=== PATIENT | male | born 1960 | race Caucasian/White ===

== ENCOUNTER → 2016-08-24 | Outpatient (CLI) | payer BC ==
[2016-08-24 17:46] LABS: Appearance,Urine Clear (Clear); Bilirubin,Urine Negative (Negative); Glucose,Urine (UA) Negative (Negative); Ketones,Urine Negative (Negative); Leukocyte Esterase,Urine Negative (Negative); Nitrite,Urine Negative (Negative); PH, Urine 5.5 (5.0-8.0); Protein,Urine Negative (Negative); UA Billing (MACRO vs. MICRO) CHEM; Urobilinogen,Urine <2.0 mg/dL (<2.0)
[2016-08-24 17:58] LABS: CH 31.6; CHCM 34.4; HCT 40.9 % (39.0-53.0); HDW 2.74; HGB 13.5 gm/dL (13.0-17.5); MCH 30.5 pg (25.0-35.0); MCV 92.4 fL (80.0-100.0); Mean Platelet Volume 7.9; RBC 4.43 m/uL (4.30-5.90); RDW 12.9 % (11.5-15.5); WBC 6.2 k/uL (3.8-10.6)
[2016-08-24 18:07] LABS: ALT 45 U/L (21-72); AST 31 U/L (17-59); Alkaline Phosphatase 98 U/L (38-126); Anion Gap 14 mmol/L; Blood Urea Nitrogen 25 mg/dL (9-20); Calcium 10.1 mg/dL (8.4-10.2); Carbon Dioxide 26 mmol/L (22-30); Chloride 102 mmol/L (98-107); Glucose 149 mg/dL (74-99); Non-African American GFR(MDRD) >60 (>60 ml/min/1.73 sqM); Potassium 4.4 mmol/L (3.5-5.1); Sodium 142 mmol/L (137-145); Total Bilirubin 0.7 mg/dL (0.2-1.3); Total Protein 8.3 g/dL (6.3-8.2)
[2016-08-24 18:14] LABS: Partial Thromboplastin Time 21.9 sec (22.0-30.0); Prothrombin Time 10.5 sec (9.0-12.0)
== END | disposition home or self-care (01) ==
LOC: LABPAT 17:05
PROVIDERS: ATTEND Orthopaedic Surgery Sports Medicine
DX: Z01.810 Encounter for preprocedural cardiovascular examination (principal); Z01.812 Encounter for preprocedural laboratory examination
CPT/HCPCS: 80053; 81003; 85027; 85610; 85730; 87070

== ENCOUNTER 2016-09-07 11:01 | Inpatient (IN) | payer BC, OTHER ==
[~2016-09-07 11:01] MED LIST: ACETAMINOPHEN TAB 500 MG TAB PO ONE; DEXAMETHASONE SOD PHOSPHATE 10 MG/ML 1 ML VIAL IV ONE; HYDROmorphone 1 MG/ML 1 ML SYRINGE IVP PRN; LACTATED RINGERS 1,000 ML IV SCH; MELOXICAM 7.5 MG TAB PO ONE; MIDAZOLAM 2 MG/2 ML VIAL IV PRN; ONDANSETRON 4 MG/2 ML VIAL IVP ONE; Pre Op ABX Message 1 EACH MISC MISCELLANE ONE; TRANEXAMIC ACID 1,000 MG in SODIUM CHLORIDE 0.9% 100 ML IVPB ONE; VANCOMYCIN 2,000 MG in SODIUM CHLORIDE 0.9% 500 ML IVPB STA
[2016-09-07] MEDS ORDERED: LIDOCAINE 1% 20 ML VIAL (10MG/ML) FOR IV START INTRADERMA ONE (11:45)
[2016-09-07 12:02] LABS: Glucose,Whole Blood 134 mg/dL (75-99)
[2016-09-07] MEDS ORDERED: [UNRECOGNIZED DRUG - OTHER] IRRIGATION ONE (13:00)
[2016-09-07] MEDS ORDERED: VANCOMYCIN IRRIGATION ONE (13:00)
[2016-09-07] MEDS ORDERED: POLYMYXIN B IRRIGATION ONE (13:00)
[2016-09-07] MEDS ORDERED: PROPOFOL 10 MG/ML 20 ML VIAL IV ONE (13:02)
[2016-09-07] MEDS ORDERED: GLYCOPYRROLATE 0.2 MG/ML 2 ML VIAL ONE (13:02)
[2016-09-07] MEDS ORDERED: KETAMINE 10 MG/ML 20 ML VIAL ONE (13:02)
[2016-09-07] MEDS ORDERED: fentaNYL (PF) 50 MCG/ML 2 ML AMP ONE (13:02)
[2016-09-07] MEDS ORDERED: MIDAZOLAM 2 MG/2 ML VIAL ONE (13:02)
[2016-09-07] MEDS ORDERED: SODIUM CHLORIDE 0.9% 100 ML BAG ONE (13:02)
[2016-09-07] MEDS ORDERED: MORPHINE SULFATE (PF) 0.3 MG/0.3 ML SYR ONE (13:02)
[2016-09-07] MEDS ORDERED: TRANEXAMIC ACID 1,000 MG/10 ML VIAL ONE (13:02)
[2016-09-07] MEDS ORDERED: traMADol 50 MG TAB PO PRN (13:27)
[2016-09-07] MEDS ORDERED: TEMAZEPAM 15 MG CAP PO PRN (13:27)
[2016-09-07] MEDS ORDERED: HYDROcodone/APAP 7.5-325MG 1 EACH TAB PO PRN (13:27)
[2016-09-07] MEDS ORDERED: HYDROmorphone 1 MG/ML 1 ML SYRINGE IVP PRN ×3 (13:27)
[2016-09-07] MEDS ORDERED: ONDANSETRON 4 MG/2 ML VIAL IVP PRN (13:27)
[2016-09-07] MEDS ORDERED: ACETAMINOPHEN TAB 325 MG TAB PO PRN (13:27)
[2016-09-07] MEDS ORDERED: NALOXONE 0.4 MG/ML 1 ML VIAL IV PRN ×2 (13:27→15:24)
[2016-09-07] MEDS ORDERED: DIAZEPAM 5 MG TAB PO PRN (13:27)
[2016-09-07] MEDS ORDERED: NA PHOS,M-B/NA PHOS,DI-BA 133 ML ENEMA RECTAL PRN (13:27)
[2016-09-07] MEDS ORDERED: BISACODYL 10 MG SUPP RECTAL PRN (13:27)
[2016-09-07] MEDS ORDERED: MAGNESIUM HYDROXIDE 2,400 MG/10 ML CUP PO PRN (13:27)
[2016-09-07] MEDS: ROPIVACAINE 246.25 MG, EPINEPHrine 0.5 MG, KETOROLAC 30 MG, cloNIDine HCL/PF 80 MCG, WA... MISCELLANE ONE ×10 (13:40→14:38)
[2016-09-07] MEDS ORDERED: LACTATED RINGERS 1,000 ML IV ONE (14:45)
[2016-09-07] MEDS ORDERED: NALBUPHINE 10 MG/ML AMPUL IV PRN (15:24)
[2016-09-07] MEDS ORDERED: METOCLOPRAMIDE 5 MG/ML 2 ML VIAL IVP PRN (15:24)
[2016-09-07] MEDS ORDERED: MORPHINE SULFATE 4 MG/ML SYRINGE IVP PRN (15:24)
[2016-09-07 15:43] LABS: Glucose,Whole Blood 182 mg/dL (75-99)
--- NOTE | 2016-09-07 15:52 | XR ---
EXAMINATION TYPE: XR knee limited LT DATE OF EXAM: 09/07/2016 3:37 PM COMPARISON: NONE HISTORY: 55 year-old male evaluate for postoperative abnormality and alignment TECHNIQUE: Portable AP and crosstable lateral views FINDINGS: Images show placement of left total knee arthroplasty. Both distal femoral and proximal tibial compon ents of the osteosynthesis are well-seated without periprosthetic fracture. Alignment is grossly jass omic. Anterior soft tissue swelling with soft tissue gas as well as intra-articular air and joint eff usion compatible with recent operation. IMPRESSION: Uncomplicated postoperative appearance left total knee arthroplasty.
[2016-09-07] MEDS: LACTATED RINGERS 1,000 ML IV SCH ×2 (16:52→21:53)
[2016-09-07 17:06] LABS: Glucose,Whole Blood 175 mg/dL (75-99)
[2016-09-07] MEDS ORDERED: metFORMIN 500 MG TAB PO SCH (17:30)
[2016-09-07 19:06] VITALS: BMI 7030.0
[2016-09-07] MEDS: INSULIN LISPRO (humaLOG) 300 UNIT/3 ML VIAL SQ SCH ×2 (19:21→21:51)
[2016-09-07] MEDS: SENNOSIDES-DOCUSATE SODIUM 1 EACH TAB PO SCH (20:56)
[2016-09-07] MEDS ORDERED: MAG PO SCH (21:00)
[2016-09-07] MEDS ORDERED: POT PO SCH (21:00)
[2016-09-07] MEDS ORDERED: BROMELAIN PO SCH (21:00)
[2016-09-07 21:17] LABS: Glucose,Whole Blood 167 mg/dL (75-99)
--- NOTE | 2016-09-07 22:46 | OP ---
DATE OF SERVICE: 09/07/2016 SURGEON: HO RUTH MD IT ACCOUNT MANAGER: Zaid HILARIO PREOPERATIVE DIAGNOSIS: Left knee osteoarthrosis. POSTOPERATIVE DIAGNOSIS: Left knee osteoarthrosis. OPERATION: Left total knee arthroplasty. ANESTHESIA: Spinal with sedation. ESTIMATED BLOOD LOSS: 100 mL TOURNIQUET TIME: 56 minutes @ 250 mmHg. SPECIMENS REMOVED: COMPLICATIONS: None apparent. DRAINS: None. DISPOSITION: Post-Anesthesia Care Unit. OPERATIVE FINDINGS: INDICATIONS: Saulo is a 55-year-old male with long-standing history of left knee pain. History and physical examination were consistent with advanced left knee osteoarthrosis. He has been through significant non-operative management up to this point. Further treatment options were discussed and he decided to go forward with left total knee arthroplasty. The risks of the procedure were discussed with him in detail. These risks include but are not limited to risk of infection, nerve damage, bleeding, pain, and a small risk of deep vein thrombosis which could lead to fatal pulmonary embolism. There is also a risk of loosening of the implant, which could require revision operation. The patient understands these risks. All of his questions were answered to his satisfaction. Appropriate informed consent was obtained. DESCRIPTION OF THE PROCEDURE: The patient was identified in the preoperative holding area. Surgical site was marked by both the patient and myself. He was given 1 gram of vancomycin IV for prophylactic purposes. He was then transferred to the operative suite. He was placed supine on the operating room table. A spinal anesthetic was then administered and dosed per the anesthesia department without apparent complication. Examination under anesthesia was then performed. The patient was 5 to 10 degrees shy of full extension. He had 90 degrees of flexion, and the medial collateral ligament, lateral collateral ligament and posterior cruciate ligaments were stable. The tourniquet was then placed high on the left upper thigh, well padded in preparation for surgery. The patient's left lower extremity was then prepped and draped in the usual sterile fashion. Standard surgical pause was then undertaken to ensure that we were operating on the correct site and that appropriate preoperative antibiotics had been given. All staff in the room were in agreement and we proceeded. The outlines of the patella were marked with a surgical pen. A planned 12 cm vertical incision centered over the patella was marked with a surgical pen. The leg was then exsanguinated with an Esmarch dressing. The knee was then flexed and the tourniquet was inflated to 250 mmHg. The total tourniquet time for the procedure was 56 minutes. Incision was then made with a 10 blade scalpel. Dissection was carried down sharply to the overlying fascia. Great care was taken to minimize the skin flaps. The knee was then exposed using a standard medial parapatellar approach. A small cuff of quadriceps tendon was left for suturing. He was in a bit of varus preoperatively. A standard medial release was then made. Superficial medial collateral ligament was dissected off the bone around to the posterior aspect of the proximal tibia. The medial meniscus was then excised as well. The lateral meniscus was also released anteriorly. The leg was then externally rotated. The patella was then everted and the knee was flexed. Retractors were then placed to protect the collateral ligaments. I then proceeded to remove the infrapatellar fat pad. This was excised sharply tangentially with the fibers of the patellar tendon. I then proceeded to remove the peripheral osteophytes. This was done with a rongeur. I then proceeded with distal femoral resection. He did have a flexion contracture. I planned to take an extra 2 mm of bone. A planned 11 mm resection was then done. The femoral canal was then entered in the midline of the femur approximately 10 mm anterior to the origin of the posterior cruciate ligament. The vincenzo was then advanced down the center of the femur and placed intramedullary. Based on preoperative radiographs, the angle between the anatomic and mechanical axis of the femur was approximately 4 to 5 degrees. The valgus angle of the distal femoral cutting guide was set at 4 degrees for the left knee. The distal femoral cutting guide was then advanced over the intramedullary vincenzo. This was seated firmly against the femur. I then, as mentioned, planned to take 11 mm off the distal femur. The cutting block was then secured to the femur with pins. The jig was then removed and the distal femoral cut was made through the slot on the block. The pins were then removed and the distal femoral cutting block was removed. The accuracy of the distal femoral cuts was checked with 2 flat bars. I then proceeded with femoral sizing. The posterior referencing sizing guide was held firmly against the resected distal surface of the femur. The posterior condyles were resting on the posterior plane of the guide. The sizing stylus was then placed onto the anterior femur. The size was measured as size 11. I then assessed for femoral rotation. The plan was for 3 degrees of external rotation. Three degrees of external rotation was placed onto the jig. These holes were then marked. I then confirmed the rotation by 3 separate methods. This was done using the epicondylar axis as well as Whitesides line and posterior referencing. It was deemed that the external rotation was proper. I then went forward with placing the femoral cutting block. This was placed over the previously placed pinholes. The dominik wing was then placed onto the anterior slots to ensure that we would not notch the anterior femur with the anterior femoral cut. I then proceeded with the anterior femoral cut. This was flush with the anterior cortex of the femur. Posterior cuts were then made followed by the anterior chamfer cut and then the posterior chamfer cut. Cutting block was then removed. Throughout the resection the collateral ligaments were protected with retractors. I then placed a trial size 11 femur. It fit very nicely medial to lateral and fit flush with the distal end of the femur. The drill holes were then made. I then proceeded with the tibial cut. I planned for a cruciate-retaining knee. The guide was placed and set for varus, valgus and for slope. The height was set for approximate 2 mm resection from the medial tibial plateau, which was the lower side. I was happy with the alignment and the amount of resection. The cutting block was then pinned ( ) the proximal tibia. The alignment vincenzo was removed and the proximal tibia was resected with reciprocating saw. Again this was done with retractors protecting the collateral ligaments as well as the posterior cruciate ligament. I then proceeded to evaluate the flexion and extension gaps. A 10 mm block was placed. The flexion and extension gaps were equal. I then proceeded with resection of the very extensive posterior osteophytes. This was done using a curved osteotome. This resected the posterior osteophytes in the posterior capsule. Stripping was also done at this time off the posterior aspect of the femur. The osteophytes were removed. I then proceeded with resection of the patella. The thickness of the patella was measured using the caliper. The thickness was 24 mm. The thickness of the anticipated patellar dome was taken into account. Resection was then performed and confirmed to be equal in 4 quadrants using a caliper. Approximately 14 mm of bone remained after the resection. A 35 x 9 mm standard patellar trial was then placed. The holes were then drilled and the trial was then placed. I then proceeded with sizing the tibial plate. A size G tibial plate fit very nicely. I then placed a trial femur, tibial tray and the patellar button. A 10 mm trial tibial insert was also placed. The components fit very nicely. He had full extension and flexion. The extension and flexion gaps were equal and stable to both varus and valgus stress. The patella tracked appropriately. The tibial tray rotation was marked with a Bovie. This was externally rotated properly. I then proceeded with tibial preparation. I first drilled the femoral holes and removed the femoral component. The tibial tray was then set for proper external rotation as well as mediolateral placement onto the tibia. It was then pinned into place. I then proceeded with punching the keel. I then decided to proceed cementing of all of our components. The knee was thoroughly irrigated with sterile saline solution via pulse lavage. The lateral genicular artery was identified and cauterized. All blood was removed from around the bone of the tibia, femur and patella with pulse lavage. I then proceeded with cementing. Two packs of antibiotic bone cement were prepared on the back table by the manager surgical. I then proceeded with cementing of the tibia first. The cement was then impacted into the keel as well as deeply seated into the bone. A second coat of cement was then placed. The tibia was then impacted into place. Excess cement was removed with Rachael's and jokers. I then proceeded with cementing of the femoral component. The femoral component was also cemented using standard technique. Excess cement was removed. A 10 mm trial insert was then placed into the knee. It was brought into full extension with a constant axial load placed until the cement had hardened. The patellar component was then cemented. This was held firmly with a compressive device until the cement had dried. When the cement had dried, the knee was taken out of extension. All excess cement was removed from around the prosthesis. I then trialed the knee with a 10 mm insert. Flexion and extension gaps were appropriate. The knee was stable. It came into full extension. I decided to go forward with a 10 mm cross-linked cruciate-retaining tibial insert. Polyethylene was then placed onto the tibial tray and locked. The knee was reduced. The knee was again further irrigated with sterile saline solution with antibiotic added. The tourniquet was then deflated. The total tourniquet time for the procedure was 56 minutes at 250 mmHg. Final components were Esme Persona size 11 cruciate-retaining femoral component, a size G tibial tray, a 10 mm cruciate-retaining polyethylene insert, and a 35 x 9 mm patella. I then proceeded with closure. Again the knee was thoroughly irrigated. The quadriceps tendon and the medial retinaculum were reapproximated with #2 Ethibond suture. The extensor mechanism was then closed with running #2 Quill suture. Subcutaneous tissues were then closed with 2-0 Vicryl interrupted suture. Skin was closed with a running 3-0 Quill suture. Dermabond was applied to the incision. Sterile compressive dressings were then applied. All sponge and needle counts were deemed correct prior to closure. The patient tolerated the procedure without apparent complications. He was transferred to the recovery room in stable condition.
[2016-09-08] MEDS: ASPIRIN 325 MG TAB PO SCH ×3 (00:55→20:17)
[2016-09-08] MEDS ORDERED: VANCOMYCIN 2,500 MG in SODIUM CHLORIDE 0.9% 500 ML IVPB ONE (01:00)
[2016-09-08 07:05] LABS: Glucose,Whole Blood 134 mg/dL (75-99)
[2016-09-08 07:27] LABS: Basophils % (A) 0 %; CHCM 35.6; Eosinophils % (A) 0 %; HCT 36.2 % (39.0-53.0); HGB 12.4 gm/dL (13.0-17.5); Luc # (Auto) 0.09; Luc % (Auto) 1; Lymphocytes % (A) 13 %; MCH 30.8 pg (25.0-35.0); MCHC 34.1 g/dL (31.0-37.0); MCV 90.4 fL (80.0-100.0); Mean Platelet Volume 7.9; Monocytes # (A) 0.4 k/uL (0-1.0); Monocytes % (A) 5 %; Neutrophils % (A) 80 %; RBC 4.01 m/uL (4.30-5.90); RDW 12.7 % (11.5-15.5); WBC 7.4 k/uL (3.8-10.6); WBC (Perox) 7.92
[2016-09-08] MEDS: INSULIN LISPRO (humaLOG) 300 UNIT/3 ML VIAL SQ SCH ×4 (07:29→20:18)
[2016-09-08] MEDS: LOSARTAN 50 MG TAB PO SCH (07:32)
[2016-09-08] MEDS: amLODIPine 10 MG TAB PO SCH (07:32)
[2016-09-08] MEDS: MULTIVITAMINS, THERA 1 EACH TAB PO SCH (07:33)
[2016-09-08] MEDS: CYANOCOBALAMIN 500 MCG TAB PO SCH (07:33)
[2016-09-08] MEDS: ASCORBIC ACID 500 MG TAB PO SCH (07:33)
[2016-09-08] MEDS: FERROUS SULFATE 325 MG TAB PO SCH (07:33)
[2016-09-08] MEDS: metFORMIN 500 MG TAB PO SCH ×2 (07:34→17:09)
[2016-09-08] MEDS: HYDROCHLOROTHIAZIDE 25 MG TAB PO SCH (07:34)
[2016-09-08 08:39] LABS: Hemoglobin A1C 6.8 % (4.2-6.1)
[2016-09-08] MEDS ORDERED: amLODIPine 10 MG TAB PO SCH (09:00)
[2016-09-08] MEDS ORDERED: HYDROCHLOROTHIAZIDE 25 MG TAB PO SCH (09:00)
[2016-09-08] MEDS ORDERED: LOSARTAN 50 MG TAB PO SCH (09:00)
--- NOTE | 2016-09-08 10:58 | P.PN ---
Progress Note - Text Date:09/08 Time:731 Patient is status post tkr. Patient seen this morning with VAS score of 0 . c/o of mild pruritus, c/o nausea/vomiting, comfortable and doing better todaybayron Hernández
[2016-09-08 11:44] LABS: Glucose,Whole Blood 152 mg/dL (75-99)
[2016-09-08] MEDS ORDERED: ASCORBIC ACID 500 MG TAB PO SCH (12:00)
[2016-09-08] MEDS ORDERED: FERROUS SULFATE 325 MG TAB PO SCH (12:00)
[2016-09-08] MEDS ORDERED: CYANOCOBALAMIN 500 MCG TAB PO SCH (12:00)
[2016-09-08] MEDS: LACTATED RINGERS 1,000 ML IV SCH ×3 (12:01→20:22)
[2016-09-08] MEDS: HYDROcodone/APAP 7.5-325MG 1 EACH TAB PO PRN ×2 (13:56→19:04)
--- NOTE | 2016-09-08 14:39 | P.PN ---
Subjective Principal diagnosis: Status post left total knee arthroplasty Patient is pleasant 55-year-old male seen at bedside this morning. He's postop day #1 from left total knee arthroplasty per Dr. Krishnamurthy. He has mild pain at surgical site as expected. He has no new complaints. He denies numbness, tingling or calf pain. Review of systems negative for fever, chills, chest pain or shortness of breath. Objective - Vital Signs Vital signs: Vital Signs Temp 98.0 F 09/08/16 14:21 Pulse 87 09/08/16 14:21 Resp 16 09/08/16 14:21 BP 121/67 09/08/16 14:21 Pulse Ox 98 09/08/16 14:21 Intake & Output 09/07/16 09/08/16 09/08/16 18:59 06:59 18:59 Intake Total 1411 600 900 Output Total 525 1850 1500 Balance 886 -1250 -600 Weight 163.293 kg Intake: IV 1411 Oral 600 900 Output: Urine 425 1850 1500 Uretheral (Moura) 700 Estimated Blood Loss 100 Other: Voiding Method Indwelling Catheter Indwelling Catheter # Voids 2 - Constitutional General appearance: Present: obese - Psychiatric Psychiatric: Present: A&O x's 3, appropriate affect, intact judgment & insight - Labs CBC & Chem 7: 09/08/16 07:12 Labs: Abnormal Lab Results - Last 24 Hours (Table) 09/07/16 09/07/16 09/07/16 Range/Units 15:39 17:03 21:14 RBC (4.30-5.90) m/uL Hgb (13.0-17.5) gm/dL Hct (39.0-53.0) % POC Glucose (mg/dL) 182 H 175 H 167 H (75-99) mg/dL Hemoglobin A1c (4.2-6.1) % 09/08/16 09/08/16 09/08/16 Range/Units 06:57 07:08 07:12 RBC 4.01 L (4.30-5.90) m/uL Hgb 12.4 L (13.0-17.5) gm/dL Hct 36.2 L (39.0-53.0) % POC Glucose (mg/dL) 134 H (75-99) mg/dL Hemoglobin A1c 6.8 H (4.2-6.1) % 09/08/16 Range/Units 11:40 RBC (4.30-5.90) m/uL Hgb (13.0-17.5) gm/dL Hct (39.0-53.0) % POC Glucose (mg/dL) 152 H (75-99) mg/dL Hemoglobin A1c (4.2-6.1) % Assessment and Plan (1) S/P total knee arthroplasty Narrative/Plan: He'll continue with routine postop orthopedic protocol including pain management , wound care, physical therapy, DVT prophylaxis and postoperative medical management. Expect that he'll be discharged to home tomorrow 09/09/2016 Status: Acute Time with Patient: Less than 30
[2016-09-08 16:52] LABS: Glucose,Whole Blood 131 mg/dL (75-99)
[2016-09-08] MEDS: hydrOXYzine PAMOATE 25 MG CAP PO PRN (19:05)
[2016-09-08] MEDS: SENNOSIDES-DOCUSATE SODIUM 1 EACH TAB PO SCH (19:08)
--- NOTE | 2016-09-08 19:41 | CONS ---
DATE OF CONSULTATION: 09/08/2016 REASON FOR CONSULTATION: Medical management requested by Dr. Krishnamurthy. CONSULTATION: This is a pleasant 55-year-old patient of Dr. Rodriguez who has undergone left total knee arthroplasty. He is rather comfortable, lying in bed. No nausea, vomiting or chest pain. Denies any cardiac history. Patient's chronic stable medical conditions include diabetes, obstructive sleep apnea, for which he already uses a CPAP machine, hypertension. REVIEW OF SYSTEMS: CONSTITUTIONAL: None. HEENT: None. RESPIRATORY: None. CARDIOVASCULAR: None. GASTROINTESTINAL: None. GENITOURINARY: None. MUSCULOSKELETAL: Arthritic pain in the joints. DERMATOLOGIC: None. HEMATOLOGIC: None. LYMPHATIC: None. PSYCHIATRY: None. NEUROLOGICAL: None. PAST HISTORY: 1. Hypertension. 2. Obstructive sleep apnea. 3. Diabetes. 4. Osteoarthritis. PAST SURGICAL HISTORY: 1. Venous ablation, right leg. 2. Colonoscopy. 3. Right knee replaced. SOCIAL HISTORY: . Works at [employer]. Did smoke in the remote past. FAMILY HISTORY: Reviewed; noncontributory to presentation. HOME MEDICATIONS: 1. Metformin 500 mg p.o. b.i.d. 2. Norvasc 10 mg p.o. daily. 3. Red yeast rice 600 mg p.o. daily. 4. Olmesartan 40 mg p.o. daily. 5. Multivitamin 1 tablet p.o. daily. 6. Hydrochlorothiazide 25 mg p.o. daily. 7. Dayanna chavarria 540 mg p.o. daily. 8. Iron 325 mg p.o. daily. 9. Vitamin B12 1000 mcg p.o. daily. 10. Aspirin 81 mg p.o. daily. 11. Vitamin C 500 mg p.o. daily. ALLERGIES: KEFLEX. On examination, temperature 98, pulse 87, respiration 16, blood pressure 121/67, pulse ox 98% on room air. GENERAL APPEARANCE: Well built; BMI ( ). Lying in bed, not in distress. EYES: Pupils equal. Conjunctivae normal. HEENT: Oral cavity normal. NECK: JVD not raised. Mass not palpable. RESPIRATORY: Effort normal. LUNGS: Distant breath sounds. CARDIOVASCULAR: Heart sounds muffled. No edema. ABDOMEN: Soft, nontender. Liver and spleen not palpable. LYMPHATIC: No lymph node palpable in neck or axillae. PSYCHIATRY: Alert and oriented x3. Mood and affect normal. NEUROLOGICAL: Pupils equal. Cranial nerves grossly intact. Power and sensation grossly intact. MUSCULOSKELETAL: Dressing over the left knee. INVESTIGATIONS: White count 7.4, hemoglobin 12.4. Accu-Cheks are noted. ASSESSMENT: 1. Left total knee arthroplasty. 2. Primary osteoarthritis in multiple joints, especially in the lower extremities. 3. Essential hypertension. 4. Obstructive sleep apnea; uses a CPAP machine. 5. Diabetes mellitus, type 2, on oral hypoglycemic. 6. Morbid obesity; body mass index ( ). PLAN: Home medications are resumed. Patient's Accu-Cheks will be followed. For DVT prophylaxis, patient is on aspirin 325 twice [address] day [address] Krishnamurthy. Patient should see a dietitian for weight loss measures. Care was discussed with the patient. Questions were answered.
[2016-09-08 20:02] LABS: Glucose,Whole Blood 138 mg/dL (75-99)
[2016-09-09] MEDS: hydrOXYzine PAMOATE 25 MG CAP PO PRN ×2 (04:48→10:40)
[2016-09-09] MEDS: HYDROcodone/APAP 7.5-325MG 1 EACH TAB PO PRN ×2 (04:48→10:39)
[2016-09-09 07:04] LABS: Glucose,Whole Blood 125 mg/dL (75-99)
[2016-09-09] MEDS: metFORMIN 500 MG TAB PO SCH (08:27)
[2016-09-09] MEDS: ASPIRIN 325 MG TAB PO SCH (08:27)
[2016-09-09] MEDS: amLODIPine 10 MG TAB PO SCH (08:28)
[2016-09-09] MEDS: HYDROCHLOROTHIAZIDE 25 MG TAB PO SCH (08:28)
[2016-09-09] MEDS: LOSARTAN 50 MG TAB PO SCH (08:28)
--- NOTE | 2016-09-09 09:15 | PN ---
DATE OF SERVICE: 09/09/2016 Saulo is postoperative day number two status post left total knee arthroplasty. He is doing quite well resting comfortably. Pain is well controlled. He did have some drainage start from the knee last night. It is a mild amount of bloody drainage. Other than that he is doing quite well. He is afebrile. Vital signs are stable. I did take the dressing down. He has a punctate area of drainage from the central aspect of the incision. The remainder of the incision is intact. There was no undue swelling about the knee. There is no blistering around the knee. His calf is soft. His neurovascular exam distally is intact. He has an intact flexion-extension, inversion and eversion of the ankle, intact flexion-extension all his toes, intact lateral, medial, plantar and first dorsal web space sensation and a palpable posterior tibial pulse with brisk capillary refill in all of his digits. IMPRESSION: Postoperative day number two status post left total knee arthroplasty. RECOMMENDATIONS: He did have a mild amount of drainage. We reinforced this with dressings at this point. I did instruct Saulo to minimize the amount of knee flexion that he does over the next couple of days. Certainly want to keep the incision clean and dry. He will continue postoperative DVT prophylaxis. We will follow with Saulo in the office next week. All of his questions were answered to his satisfaction.
[2016-09-09 09:35] VITALS: BP 133/85; PULSE 89; RESP 15; TEMP 97.4
[2016-09-09] MEDS: INSULIN LISPRO (humaLOG) 300 UNIT/3 ML VIAL SQ SCH ×2 (09:52→12:37)
--- NOTE | 2016-09-09 10:29 | P.DS ---
Providers Date of admission: 09/07/16 11:01 Expected date of discharge: 09/09/16 Attending physician: Reggie Krishnamurthy Consults: 09/07/16 13:27 Consult Physician Routine Consulting Provider: Miguelangel Morales Consult Reason/Comments: post op medical management Do you want consulting provider notified?: Yes Primary care physician: Ramu Rodriguez - Discharge Diagnosis(es) (1) S/P total knee arthroplasty Patient is a 55-year-old male is admitted to the OR on 09/08/2016 to undergo left total knee arthroplasty. He failed conservative measures as an outpatient and desired to proceed with elective surgery after given informed consent. He underwent the above procedure which he tolerated well without complication. His postoperative hospital course has remained without complication. On day of discharge he is afebrile, vital signs stable, wound is benign with some mild benign drainage which is being reinforced. Labs are within acceptable ranges, he denies new complaints, voiding without difficulty, passing flatus and tolerating by mouth meds and diet. He is neurovascularly intact, calf is soft and nontender and 2+ dorsalis pedis pulses present. Review of systems is negative for fever, chills, chest pain, shortness breath, nausea, vomiting, dizziness, headaches, rashes, slurred speech, abdominal pain, calf pain, numbness, tingling or other. Current Visit: No Status: Acute Priority: Medium Procedures: Status post left total knee arthroplasty Patient Condition at Discharge: Good Plan - Discharge Summary New Discharge Prescriptions: Aspirin 325 mg PO BID #60 tab HYDROcodone/APAP 7.5-325MG [[place] 7.5-325] 1 - 2 each PO Q6HR PRN #90 tab PRN Reason: Pain Discharge Medication List Ascorbic Acid [Vitamin C] 500 mg PO DAILY 08/25/13 [History] Aspirin 81 mg PO DAILY 08/25/13 [History] Cyanocobalamin [Vitamin B-12] 1,000 mcg PO DAILY 09/01/13 [History] Ferrous Sulfate [Feosol] 325 mg PO DAILY 09/01/13 [History] Dayanna Cuello 540 mg PO DAILY 09/01/13 [History] Red Yeast Rice 600 mg PO DAILY 09/01/13 [History] amLODIPine BESYLATE [Norvasc] 10 mg PO DAILY 09/01/13 [History] metFORMIN HCL [Glucophage] 500 mg PO BID 09/04/16 [History] Hydrochlorothiazide 25 mg PO DAILY 09/07/16 [History] Mag/Pot/Bromelain 2 tab PO HS 09/07/16 [History] Multivitamins, Thera [Multivitamin (formulary)] 1 tab PO DAILY 09/07/16 [History ] Olmesartan Medoxomil 40 mg PO DAILY 09/07/16 [History] Aspirin 325 mg PO BID #60 tab 09/09/16 [Rx] HYDROcodone/APAP 7.5-325MG [[place] 7.5-325] 1 - 2 each PO Q6HR PRN #90 tab [Rx] Follow up Appointment(s)/Referral(s): Reggie Krishnamurthy MD [STAFF PHYSICIAN] - 09/20/16 10:15 am Activity/Diet/Wound Care/Special Instructions: Keep wound clean and dry F/U with Dr. Krishnamurthy in office WBAT Take meds as directed Discharge Disposition: HOME WITH HOME HEALTH SERVICES
[2016-09-09 11:19] LABS: Glucose,Whole Blood 161 mg/dL (75-99)
[2016-09-09] MEDS: MULTIVITAMINS, THERA 1 EACH TAB PO SCH (11:49)
[2016-09-09] MEDS: CYANOCOBALAMIN 500 MCG TAB PO SCH (11:49)
[2016-09-09] MEDS: ASCORBIC ACID 500 MG TAB PO SCH (11:49)
[2016-09-09] MEDS: FERROUS SULFATE 325 MG TAB PO SCH (11:49)
--- NOTE | 2016-09-09 19:35 | PN ---
DATE OF SERVICE: 09/09/2016 Reason for admission: Osteoarthritis of left knee, status post surgical intervention and medical management. This patient is status post left knee arthroplasty. Patient is lying comfortably in bed. No nausea. No vomiting. No chest pain. States pain is being well controlled with his current medications. Review of systems done for constitutional, cardiovascular, GI, pulmonary, with relevant findings as above. CURRENT MEDICATIONS: [place], Norvasc, aspirin, Valium, Hydrodiuril, Dilaudid, Vistaril. Insulin. PHYSICAL EXAMINATION: VITAL SIGNS: Temperature 97.4, pulse 89, respirations 15, blood pressure 133/85, oxygen saturation 97% on room air. GENERAL APPEARANCE: Patient is lying comfortably in bed. No distress noted. EYES: Pupils equal. Conjunctivae normal. NECK: JVD not raised. Mass not palpable. LUNGS: Diminished throughout. RESPIRATORY: Effort normal. CARDIOVASCULAR: First and second sounds noted. No edema. ABDOMEN: Soft, nontender. Liver and spleen not palpable. PSYCHIATRY: Alert and oriented x3. Mood and affect normal. Investigations: No new investigations. ASSESSMENT: 1. Left total knee arthroplasty. 2. Primary osteoarthritis of multiple joints, especially in the lower extremities. 3. Essential hypertension. 4. Obstructive sleep apnea, uses a CPAP machine. 5. Diabetes mellitus, type II on oral hypoglycemics. 6. Morbid obesity; body mass index 46.2. PLAN: Continuation of current medication and treatment plan. Patient will be discharged this afternoon. Case was discussed with the patient. All questions were answered. Patient was seen and examined by nurse practitioner, Carrie Field, and all elements of the case discussed with attending, Dr. Morales. I performed a history and physical examination of this patient and discussed the same with the dictator. I agree with the dictator's note. Any additional findings/opinions, etc. will be noted.
== END 2016-09-09 15:16 | disposition home health service (06) | DRG 470 ==
LOC: 2ORMAIN 11:01 → 3SUR 15:56
PROVIDERS: ADMIT Orthopaedic Surgery Sports Medicine; ATTEND Orthopaedic Surgery Sports Medicine
PROC: 0SRD0J9 Replacement of Left Knee Joint with Synthetic Substitute, Cemented, Open Approach (ICD-10-PCS; principal; 2016-09-07 13:20)
DX: M17.12 Unilateral primary osteoarthritis, left knee (principal); Z68.42 Body mass index [BMI] 45.0-49.9, adult; I10 Essential (primary) hypertension; E66.01 Morbid (severe) obesity due to excess calories; E11.9 Type 2 diabetes mellitus without complications; G47.33 Obstructive sleep apnea (adult) (pediatric); L29.9 Pruritus, unspecified; Z79.82 Long term (current) use of aspirin; Z79.84 Long term (current) use of oral hypoglycemic drugs; Z79.899 Other long term (current) drug therapy; Z88.1 Allergy status to other antibiotic agents; Z87.891 Personal history of nicotine dependence
CPT/HCPCS: 83036; 85025; 88300; 94760

== ENCOUNTER → 2020-03-09 | Outpatient (CLI) | payer BC, OTHER | END | disposition home or self-care (01) | LOC: RADMRIMAIN 07:17 | PROVIDERS: ATTEND Orthopaedic Surgery Sports Medicine | DX: Z53.9 Procedure and treatment not carried out, unspecified reason (principal) ==

== ENCOUNTER 2020-05-03 12:20 | Inpatient (IN) | payer BC ==
--- NOTE | 2020-05-03 14:46 | P.GSCN ---
History of Present Illness History of present illness: 59-year-old diabetic male patient is known to me from the past. Patient has history of 4 infected wound left foot lateral aspect for the last 3 weeks he did not come to the hospital patient came to the wound clinic today this is a necrotic wound on the lateral aspect of the left foot with exposed fifth metatarsal bone there is also cellulitis or redness noted on the dorsal suspect of the foot. Medical history history of diabetes, history of peripheral vascular disease Surgical history patient had a endovenous laser ablation done by me in the past on the right leg patient also had a left total knee done in the past Personal history ALLERGY to Kefle On examination neck is supple no bruit appreciated Chest is clear first and second sound normal good entry both lungs Abdomen soft nontender Vascular examination femorals are 1+ PTDP not palpable patient has a necrotic wound on the left foot lateral aspect with exposed bone Plan is amputation of the fifth toe and debridement of the diverting last tissue risk and complication discussed Past Medical History Past Medical History: Diabetes Mellitus, Hypertension, Vascular Disorder Additional Past Medical History / Comment(s): hx. of cellulitis and venous i nsufficiency, uses CPAP, sleep apnea History of Any Multi-Drug Resistant Organisms: None Reported Past Surgical History: Joint Replacement Additional Past Surgical History / Comment(s): venous ablation right leg, colonoscopy. both knee replacement. Past Anesthesia/Blood Transfusion Reactions: No Reported Reaction Past Psychological History: No Psychological Hx Reported Past Alcohol Use History: Occasional Past Drug Use History: None Reported - Past Family History Mother Family Medical History: No Reported History Additional Family Medical History / Comment(s): states healthy Father Family Medical History: Cancer Additional Family Medical History / Comment(s): heart valve replacement Medications and Allergies Home Medications Medication Instructions Recorded Confirmed Type Aspirin 81 mg PO DAILY 08/25/13 04/08/18 History Cyanocobalamin [Vitamin B-12] 1,000 mcg PO DAILY 09/01/13 04/08/18 History Ferrous Sulfate [Feosol] 325 mg PO DAILY 09/01/13 04/08/18 History [place] Cu[place] 540 mg PO DAILY 09/01/13 04/08/18 History Red Yeast Rice 600 mg PO DAILY 09/01/13 04/08/18 History amLODIPine BESYLATE [Norvasc] 10 mg PO DAILY 09/01/13 04/08/18 History metFORMIN HCL [Glucophage] 500 mg PO DAILY 09/04/16 04/08/18 History Mag/Pot/Bromelain 2 tab PO HS 09/07/16 04/08/18 History Multivitamins, Thera [Multivitamin 1 tab PO DAILY 09/07/16 04/08/18 History (formulary)] Olmesartan Medoxomil 40 mg PO DAILY 09/07/16 04/08/18 History hydroCHLOROthiazide 25 mg PO DAILY 09/07/16 04/08/18 History Ascorbic Acid [Vitamin C] 500 mg PO DAILY@1200 tab 09/09/16 04/08/18 Rx Magnesium Hydroxide [Milk of 2,400 mg PO DAILY PRN dose 09/09/16 04/08/18 Rx Magnesia Concentrate] Empagliflozin [Jardiance] 25 mg PO DAILY 12/17/17 04/08/18 History Allergies Allergy/AdvReac Type Severity Reaction Status Date / Time cephalexin monohydrate Allergy Rash/Hives Verified 04/08/18 16:26 [From Keflex]
[2020-05-03 15:16] LABS: Glucose,Whole Blood 115 mg/dL (75-99)
[2020-05-03] MEDS ORDERED: LACTATED RINGERS 1,000 ML IV ONE ×2 (15:18→17:48)
[2020-05-03] MEDS ORDERED: LIDOCAINE 1% (10MG/ML) FOR IV START INTRADERMA ONE (15:18)
[2020-05-03 15:20] LABS: Basophils % (A) 0 %; Eosinophils # (A) 0.2 k/uL (0-0.7); Eosinophils % (A) 3 %; Lymphocytes # (A) 1.2 k/uL (1.0-4.8); Lymphocytes % (A) 18 %; MCH 29.5 pg (25.0-35.0); MCHC 32.6 g/dL (31.0-37.0); MCV 90.6 fL (80.0-100.0); Mean Platelet Volume 7.2; Monocytes # (A) 0.5 k/uL (0-1.0); Monocytes % (A) 7 %; Neutrophils # (A) 4.4 k/uL (1.3-7.7); Neutrophils % (A) 69 %; Platelet Count 309 k/uL (150-450); RBC 4.08 m/uL (4.30-5.90); RDW 13.1 % (11.5-15.5); WBC 6.5 k/uL (3.8-10.6)
[2020-05-03 15:34] LABS: Calcium 9.4 mg/dL (8.4-10.2); Potassium 4.3 mmol/L (3.5-5.1)
[2020-05-03] MEDS ORDERED: ONDANSETRON 4 MG/2 ML VIAL ONE (15:50)
[2020-05-03] MEDS ORDERED: DEXAMETHASONE SOD PHOSPHATE 4 MG/ML 1 ML VIAL IV ONE (15:52)
[2020-05-03] MEDS ORDERED: AMPICILLIN-SULBACTAM 3 GM in SODIUM CHLORIDE 0.9% 100 ML IVPB ONE (16:00)
[2020-05-03] MEDS ORDERED: fentaNYL (PF) 50 MCG/ML 2 ML AMP ONE (16:09)
[2020-05-03] MEDS ORDERED: KETAMINE 10 MG/ML 20 ML VIAL ONE (16:09)
[2020-05-03] MEDS ORDERED: PROPOFOL 10 MG/ML 20 ML VIAL IV ONE (16:09)
[2020-05-03] MEDS ORDERED: GLYCOPYRROLATE 0.2 MG/ML 2 ML VIAL ONE (16:09)
[2020-05-03] MEDS ORDERED: MIDAZOLAM 2 MG/2 ML VIAL ONE (16:09)
[2020-05-03] MEDS ORDERED: LIDOCAINE 1% INJ 10MG/ML (20 ML MDV) SQ ONE (16:38)
[2020-05-03 17:20] LABS: Glucose,Whole Blood 122 mg/dL (75-99)
[2020-05-03] MEDS ORDERED: ALPRAZolam 0.25 MG TAB PO PRN (18:06)
[2020-05-03] MEDS ORDERED: CALCIUM CARBONATE 500 MG CHEWABLE PO PRN (18:06)
[2020-05-03] MEDS ORDERED: MAG HYDROX/AL HYDROX/SIMETH 30 ML CUP PO PRN (18:06)
[2020-05-03] MEDS ORDERED: ONDANSETRON 4 MG/2 ML VIAL IVP PRN (18:06)
[2020-05-03] MEDS ORDERED: LACTULOSE 20 GM/30 ML CUP PO PRN (18:06)
[2020-05-03] MEDS ORDERED: ACETAMINOPHEN TAB 325 MG TAB PO PRN (18:06)
[2020-05-03] MEDS ORDERED: NALOXONE 0.4 MG/ML 1 ML VIAL IV PRN (18:06)
[2020-05-03] MEDS: ENOXAPARIN 40 MG/0.4 ML SYRINGE SQ SCH (19:57)
[2020-05-03] MEDS: LACTATED RINGERS 1,000 ML IV SCH (19:59)
--- NOTE | 2020-05-03 20:20 | OP ---
OPERATIVE REPORT PREOPERATIVE DIAGNOSIS: Chronic infected wound, left foot lateral aspect. Measurement is 3 x 2 x 1 cm with exposed bone. POSTOPERATIVE DIAGNOSIS: Chronic infected wound, left foot lateral aspect. Measurement is 3 x 2 x 1 cm with exposed bone. OPERATION: Amputation of the fifth toe at metatarsophalangeal joint. PROCEDURE DESCRIPTION: This patient was brought to the operating room. This patient has a history of a wound on the lateral aspect of the foot for the past 4 weeks with devitalized necrotic tissue, and tendons were exposed along with the metatarsal bone. The left foot was prepped and draped in a sterile manner. We used local anesthesia 1% with IV sedation. Elliptical incision was made on the dorsal aspect of the foot, deepened through skin, fat and fascia. Incision was extended to the plantar aspect, including the fifth toe. Deepened through skin, fat and fascia. The patient had a necrotic tendon noted on the lateral aspect of the foot which was also excised. We reached the metatarsophalangeal joint. Using a bone cutter we divided the metatarsal bone and the fifth toe was removed. There were some bleeding points which were controlled. The wound was copiously irrigated with and saline. Hemostasis was well controlled and we sent some deep tissue for culture and sensitivity. Wound was irrigated again and we placed Aquacel Silver rope. Pressure dressing was applied. Patient tolerated the procedure well and was transferred to the recovery room in satisfactory condition. MMODL / IJN: [id number] /
[2020-05-03 20:47] LABS: Glucose,Whole Blood 133 mg/dL (75-99)
--- NOTE | 2020-05-03 22:35 | P.HPIM ---
History of Present Illness H&P Date: 05/03/20 Chief Complaint: Left foot wound History of presenting complaint: This is a very pleasant 59-year-old patient of Dr. Pedro Galaviz. Chronic stable medical conditions include diabetes, hypertension, obstructive sleep apnea uses CPAP machine. Just around Thanksgiving patient noticed a small wound on the left foot distally on the lateral side. He Just using a dressing and a bandage. Started draining about 2 weeks ago. No fever no chills. No pain. 5 days ago patient went to Dr. Galaviz's office. A culture swab was taken. He was given a couple of antibiotics antibiotics. In the meantime patient and make an appointment at the wound care center Dr. Melton. Patient today came to the wound care center and was seen by Dr. Funes. Patient having significant amou nt of drainage and the left fifth toe was gangrenous. Dr. Melton called me. Patient was taken to the operating room. In the distal portion of the metatarsal at the fifth toe was taken off. Dressing in place. Denies any fever and chills. Patient is slight decreased sensation on the foot distally. No prior history of peripheral arterial disease. Review of systems: GEN.: None EYES: None HEENT: None NECK: None RESPIRATORY: None CARDIOVASCULAR: None GASTROINTESTINAL: None GENITOURINARY: None MUSCULOSKELETAL: As above LYMPHATICS: None HEMATOLOGICAL: None PSYCHIATRY: None NEUROLOGICAL: Decreased sensation in the feet Past medical history to include: Diabetes, hypertension, right foot vein surgery for venous insufficiency, obstructive sleep apnea uses CPAP Social history: . No history of smoking and alcohol. 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 EYES: Pupils equal. Conjunctiva normal. HEENT: External appearance of nose and ears normal, oral cavity grossly normal. NECK: JVD not raised; masses not palpable. HEART: First and second heart sounds are normal; no edema. LUNGS: Respiratory rate normal; clear to auscultation. ABDOMEN: Soft, nontender, liver spleen not palpable, no masses palpable. PSYCH: Alert and oriented x3; mood and affect normal. NEUROLOGICAL: Cranial nerves grossly intact; no facial asymmetry, power and sensation grossly intact. EXTREMITIES: Left foot of the dressing LYMPHATICS: No lymph nodes palpable in the axilla and neck INVESTIGATIONS, reviewed in the clinical context: White count 6.5 hemoglobin 12 platelets 309 potassium 4.3 creatinine 1.24 Accu-Cheks 120-133 Assessment: -Left foot little toe with gangrene surrounding cellulitis, status post amputation of the same and deep tissue cleansing with cultures being sent off -Diabetes mellitus type 2, on oral hypoglycemic -Morbid obesity BMI 42.9 -Obstructive sleep apnea uses CPAP machine -Essential hypertension -Possible diabetic peripheral neuropathy especially in the feet Plan: Patient's currently and IV Unasyn. IV fluids. Home medications resumed. Accu- Cheks will be followed. Lovenox for DVT prophylaxis. Dr. Melton from vascular surgery and Dr. Tracey from ID is being consulted. Patient deep tissue culture has been sent off. Care was discussed with the patient question also. Repeat labs in the morning. Past Medical History Past Medical History: Diabetes Mellitus, Hypertension, Vascular Disorder Additional Past Medical History / Comment(s): hx. of cellulitis and venous insufficiency, uses CPAP, sleep apnea History of Any Multi-Drug Resistant Organisms: None Reported Past Surgical History: Joint Replacement Additional Past Surgical History / Comment(s): venous ablation right leg, colonoscopy. both knee replacement. Past Anesthesia/Blood Transfusion Reactions: No Reported Reaction Past Psychological History: No Psychological Hx Reported Smoking Status: Former smoker Past Alcohol Use History: Occasional Past Drug Use History: None Reported - Past Family History Mother Family Medical History: No Reported History Additional Family Medical History / Comment(s): states healthy Father Family Medical History: Cancer Additional Family Medical History / Comment(s): heart valve replacement Medications and Allergies Home Medications Medication Instructions Recorded Confirmed Type Aspirin 81 mg PO DAILY 08/25/13 05/03/20 History Cyanocobalamin [Vitamin B-12] 1,000 mcg PO DAILY 09/01/13 05/03/20 History Ferrous Sulfate [Feosol] 325 mg PO DAILY 09/01/13 05/03/20 History [place] Cuello 540 mg PO DAILY 09/01/13 05/03/20 History Red Yeast Rice 600 mg PO DAILY 09/01/13 05/03/20 History amLODIPine BESYLATE [Norvasc] 10 mg PO DAILY 09/01/13 05/03/20 History metFORMIN HCL [Glucophage] 500 mg PO DAILY 09/04/16 05/03/20 History Mag/Pot/Bromelain 2 tab PO HS 09/07/16 05/03/20 History Multivitamins, Thera [Multivitamin 1 tab PO DAILY 09/07/16 05/03/20 History (formulary)] Olmesartan Medoxomil 40 mg PO DAILY 09/07/16 05/03/20 History hydroCHLOROthiazide 25 mg PO DAILY 09/07/16 05/03/20 History Ascorbic Acid [Vitamin C] 500 mg PO DAILY@1200 tab 09/09/16 05/03/20 Rx Magnesium Hydroxide [Milk of 2,400 mg PO DAILY PRN dose 09/09/16 05/03/20 Rx Magnesia Concentrate] Empagliflozin [Jardiance] 25 mg PO DAILY 12/17/17 05/03/20 History Amoxicillin/Potassium Clav 1 tab PO Q12HR 05/03/20 05/03/20 History [Augmentin 875-125 Tablet] Dulaglutide [Trulicity] 1.5 mg SQ WEEKLY 05/03/20 05/03/20 History Sulfamethoxazole/Trimethoprim 1 each PO Q12H 05/03/20 05/03/20 History [Bactrim DS 800-160 mg] Allergies Allergy/AdvReac Type Severity Reaction Status Date / Time cephalexin monohydrate Allergy Rash/Hives Verified 04/08/18 16:26 [From Keflex] Physical Exam Vitals: Vital Signs Temp Pulse Pulse Resp BP Pulse Ox 05/03/20 20:05 88 126/70 94 L 05/03/20 19:51 88 105/65 90 L 05/03/20 19:36 94 111/65 97 05/03/20 19:21 84 110/60 98 05/03/20 19:05 87 120/63 97 05/03/20 18:50 85 114/65 95 05/03/20 18:35 89 119/68 94 L 05/03/20 18:21 98.0 F 89 18 129/62 95 05/03/20 18:20 84 149/69 93 L 05/03/20 18:05 98.0 F 81 129/62 98 05/03/20 17:46 81 18 101/57 93 L 05/03/20 17:31 78 16 96/54 98 05/03/20 17:15 84 18 103/58 98 05/03/20 17:08 97.1 F L 85 12 106/61 98 05/03/20 15:17 97 F L 98 16 142/70 97 Intake and Output 05/03/20 05/03/20 05/03/20 06:59 14:59 22:59 Intake Total 1100 Output Total 100 Balance 1000 Intake: IV 1100 Output: Estimated Blood Loss 100 Other: Weight 147.418 kg 147.418 kg Results CBC & Chem 7: 05/03/20 15:17 05/03/20 15:17 Labs: Abnormal Lab Results - Last 24 Hours (Table) 05/03/20 05/03/20 05/03/20 Range/Units 15:09 15:17 15:17 RBC 4.08 L (4.30-5.90) m/uL Hgb 12.0 L (13.0-17.5) gm/dL Hct 37.0 L (39.0-53.0) % BUN 34 H (9-20) mg/dL Glucose 121 H (74-99) mg/dL POC Glucose (mg/dL) 115 H (75-99) mg/dL 05/03/20 05/03/20 Range/Units 17:18 20:46 RBC (4.30-5.90) m/uL Hgb (13.0-17.5) gm/dL Hct (39.0-53.0) % BUN (9-20) mg/dL Glucose (74-99) mg/dL POC Glucose (mg/dL) 122 H 133 H (75-99) mg/dL Microbiology - Last 24 Hours (Table) 05/03/20 17:00 Anaerobic Culture - Preliminary Toe - Left Fifth 05/03/20 17:00 Tissue Culture - Preliminary Toe - Left Fifth Thrombosis Risk Factor Assmnt - Choose All That Apply Each Factor Represents 1 point: Minor surgery planned Each Risk Factor Represents 2 Points: Age 61-74 years Thrombosis Risk Factor Assessment Total Risk Factor Score: 3 Thrombosis Risk Factor Assessment Level: Moderate Risk
[2020-05-03] MEDS: AMPICILLIN-SULBACTAM 3 GM in SODIUM CHLORIDE 0.9% 100 ML IVPB SCH (23:43)
[2020-05-04] MEDS: LACTATED RINGERS 1,000 ML IV SCH ×3 (05:00→14:39)
[2020-05-04 07:18] LABS: Glucose,Whole Blood 124 mg/dL (75-99)
[2020-05-04] MEDS: AMPICILLIN-SULBACTAM 3 GM in SODIUM CHLORIDE 0.9% 100 ML IVPB SCH ×2 (08:18→15:58)
[2020-05-04] MEDS: ENOXAPARIN 40 MG/0.4 ML SYRINGE SQ SCH (08:18)
[2020-05-04] MEDS: amLODIPine 10 MG TAB PO SCH (08:19)
[2020-05-04] MEDS: LOSARTAN 50 MG TAB PO SCH (08:19)
[2020-05-04] MEDS: MULTIVITAMINS, THERA 1 EACH TAB PO SCH (08:19)
[2020-05-04] MEDS: ASCORBIC ACID 500 MG TAB PO SCH (08:19)
[2020-05-04] MEDS: CYANOCOBALAMIN 500 MCG TAB PO SCH (08:19)
[2020-05-04] MEDS: ASPIRIN 81 MG PO SCH (08:19)
[2020-05-04] MEDS: metFORMIN 500 MG TAB PO SCH (08:19)
[2020-05-04 08:30] LABS: Basophils % (A) 1 %; Eosinophils % (A) 0 %; HCT 32.8 % (39.0-53.0); HGB 11.2 gm/dL (13.0-17.5); Lymphocytes # (A) 0.9 k/uL (1.0-4.8); Lymphocytes % (A) 15 %; MCHC 34.2 g/dL (31.0-37.0); MCV 90.5 fL (80.0-100.0); Mean Platelet Volume 7.4; Monocytes # (A) 0.4 k/uL (0-1.0); Monocytes % (A) 6 %; Neutrophils # (A) 4.8 k/uL (1.3-7.7); Neutrophils % (A) 78 %; Platelet Count 292 k/uL (150-450); RBC 3.63 m/uL (4.30-5.90); RDW 12.5 % (11.5-15.5); WBC 6.2 k/uL (3.8-10.6)
[2020-05-04] MEDS ORDERED: NON FORMULARY DRUG (Empagliflozin [Jardiance] 25 MG Tablet) PO SCH (09:00)
[2020-05-04 10:11] LABS: African American GFR (CKD) 83.5 (60.0-200.0); Albumin 3.9 g/dL (3.80-4.90); Albumin/Globulin Ratio 1.34 (1.60-3.17); Anion Gap 5.9 mmol/L (4.00-12.00); BUN/Creat Ratio 25.45 Ratio (12.00-20.00); Carbon Dioxide 26.1 mmol/L (21.6-31.8); Globulin 2.9 g/dL (1.6-3.3); Non-African American GFR(CKD) 72.1 (60.0-200.0); Potassium 4.5 mmol/L (3.5-5.5); Total Bilirubin 0.4 mg/dL (0.3-1.2); Total Protein 6.8 g/dL (6.2-8.2)
[2020-05-04 11:21] LABS: Glucose,Whole Blood 110 mg/dL (75-99)
--- NOTE | 2020-05-04 14:45 | PN ---
PROGRESS NOTE This 59-year-old diabetic male who came with infected wound, left foot lateral aspect with exposed bone. Patient went with ray amputation of the fifth toe and dissection of the mid fifth metatarsal. The patient is on IV antibiotic under Infectious Disease. We will change the dressing tomorrow with Aquacel Silver. Today, patient is stable and we will follow with you. MMMARTINA / IJN: [id number] /
[2020-05-04 16:48] LABS: Glucose,Whole Blood 141 mg/dL (75-99)
--- NOTE | 2020-05-04 21:03 | P.PN ---
Progress Note - Text Progress Note Date: 05/04/20 Chief Complaint: Left foot wound History of presenting complaint: This is a very pleasant 59-year-old patient of Dr. Pedro Galaviz. Chronic stable medical conditions include diabetes, hypertension, obstructive sleep apnea uses CPAP machine. Just around Thanksgiving patient noticed a small wound on the left foot distally on the lateral side. He Just using a dressing and a bandage. Started draining about 2 weeks ago. No fever no chills. No pain. 5 days ago patient went to Dr. Galaviz's office. A culture swab was taken. He was given a couple of antibiotics antibiotics. In the meantime patient and make an appointment at the wound care center Dr. Melton. Patient today came to the wound care center and was seen by Dr. Funes. Patient having significant amount of drainage and the left fifth toe was gangrenous. Dr. Melton called me. Patient was taken to the operating room. In the distal portion of the metatarsal at the fifth toe was taken off. Dressing in place. Denies any fever and chills. Patient is slight decreased sensation on the foot distally. No prior history of peripheral arterial disease. today-laying in bed. Comfortable. Daughter days.. No fever no chills. No pain. Review of systems: Was done for constitutional, cardiovascular, GI, pulmonary. relevant finding as above Active Medications Acetaminophen (Acetaminophen Tab 325 Mg Tab) 650 mg PO Q6HR PRN PRN Reason: Mild Pain or Fever > 100.5 Al Hydroxide/Mg Hydroxide (Mag Hydrox/Al Hydrox/Simeth 30 Ml Cup) 15 ml PO Q6HR PRN PRN Reason: Indigestion Alprazolam (Alprazolam 0.25 Mg Tab) 0.25 mg PO Q6HR PRN PRN Reason: Anxiety Amlodipine Besylate (Amlodipine 10 Mg Tab) 10 mg PO DAILY [facility] Last Admin: 05/04/20 08:19 Dose: 10 mg Documented by: Ascorbic Acid (Ascorbic Acid 500 Mg Tab) 500 mg PO DAILY@1200 [facility] Last Admin: 05/04/20 08:19 Dose: 500 mg Documented by: Aspirin (Aspirin 81 Mg) 81 mg PO DAILY [facility] Last Admin: 05/04/20 08:19 Dose: 81 mg Documented by: Calcium Carbonate/Glycine (Calcium Carbonate 500 Mg Chewable) 1,000 mg PO Q4HR PRN PRN Reason: Dyspepsia Collagenase (Collagenase 250 Unit/Gm Ointment 30 Gm Tube) 1 applic TOPICAL DAILY [facility] Cyanocobalamin (Cyanocobalamin 500 Mcg Tab) 1,000 mcg PO DAILY [facility] Last Admin: 05/04/20 08:19 Dose: 1,000 mcg Documented by: Enoxaparin Sodium (Enoxaparin 40 Mg/0.4 Ml Syringe) 40 mg SQ DAILY [facility] Last Admin: 05/04/20 08:18 Dose: 40 mg Documented by: Ampicillin Sodium/Sulbactam (Sodium 3 gm/ Sodium Chloride) 100 mls @ 200 mls/hr IVPB Q8HR [facility] Last Admin: 05/04/20 15:58 Dose: 200 mls/hr Documented by: Lactated Ringer's (Lactated Ringers) 1,000 mls @ 20 mls/hr IV .Q24H [facility] Last Admin: 05/04/20 14:39 Dose: Not Given Documented by: Lactulose (Lactulose 20 Gm/30 Ml Cup) 20 gm PO DAILY PRN PRN Reason: Constipation Losartan Potassium (Losartan 50 Mg Tab) 150 mg PO DAILY [facility] Last Admin: 05/04/20 08:19 Dose: 150 mg Documented by: Melatonin (Melatonin 3 Mg Tablet) 3 mg PO HS PRN PRN Reason: Insomnia Metformin HCl (Metformin 500 Mg Tab) 500 mg PO DAILY [facility] Last Admin: 05/04/20 08:19 Dose: 500 mg Documented by: Multivitamins (Multivitamins, Thera 1 Each Tab) 1 each PO DAILY [facility] Last Admin: 05/04/20 08:19 Dose: 1 each Documented by: Naloxone HCl (Naloxone 0.4 Mg/Ml 1 Ml Vial) 0.2 mg IV Q2M PRN PRN Reason: Opioid Reversal Ondansetron HCl (Ondansetron 4 Mg/2 Ml Vial) 4 mg IVP Q8HR PRN PRN Reason: Nausea And Vomiting Past medical history to include: Diabetes, hypertension, right foot vein surgery for venous insufficiency, obstructive sleep apnea uses CPAP Social history: . No history of smoking and alcohol. 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 Conjunctiva normal. HEENT: External appearance of nose and ears normal, oral cavity grossly normal. NECK: JVD not raised; masses not palpable. HEART: First and second heart sounds are normal; no edema. LUNGS: Respiratory rate normal; clear to auscultation. ABDOMEN: Soft, nontender, liver spleen not palpable, no masses palpable. PSYCH: Alert and oriented x3; mood and affect normal. NEUROLOGICAL: decreased sensation distally. EXTREMITIES: Left foot of the dressing INVESTIGATIONS, reviewed in the clinical context: May 04: White count 6.2 hemoglobin 11.2 platelets 292 potassium 4.5 creatinine 1.1 White count 6.5 hemoglobin 12 platelets 309 potassium 4.3 creatinine 1.24 Accu-Cheks 120-133 wound cultures-Streptococcus agalactiae Assessment: -Left foot little toe with gangrene surrounding cellulitis, status post amput ation of the same and deep tissue cleansing with cultures done -Diabetes mellitus type 2, on oral hypoglycemic -Morbid obesity BMI 42.9 -Obstructive sleep apnea uses CPAP machine -Essential hypertension - diabetic peripheral neuropathy Plan: on IV Unasyn. IV fluids. wound care per surgery. Discussed with patient.
[2020-05-04 21:13] LABS: Glucose,Whole Blood 115 mg/dL (75-99)
--- NOTE | 2020-05-04 21:52 | P.CONS ---
History of Present Illness - Reason for Consult Consult date: 05/04/20 left diabetic foot infection Requesting physician: Miguelangel Morales - Chief Complaint left foot non healing wound x weeks - History of Present Illness Patient is a 59-year male with a past medical history significant for diabetes mellitus in this patient who did have a left foot fifth toe wound since Thanksgiving patient is well cared for exactly is started however denies having any history of trauma or any ill fitting shoes patient has been seen at [facility] wound care center he was noticed to have a worsening of his wound with the bone exposed and concern for osteomyelitis for the patient was admitted to the hospital patient was subsequently taken to the OR and is status post amputation of the left fifth toe at metatarsophalangeal joint culture has been obtained patient was started on Unasyn has been admitted to the hospital infectious disease was consulted for further management of antibiotic therapy patient currently denies having any fever or any chills, patient to have neuropathy denies significant pain to left foot amputation site, he denies having any chest pain shortness with cough no abdominal pain or any diarrhea patient on presentation the hospital has been afebrile and no fluid has been recorded since then patient did have a normal white count local culture culture showing Streptococcus Review of Systems Positive point has been mentioned in HPI rest of the systems are negative Past Medical History Past Medical History: Diabetes Mellitus, Hypertension, Vascular Disorder Additional Past Medical History / Comment(s): hx. of cellulitis and venous insufficiency, uses CPAP, sleep apnea History of Any Multi-Drug Resistant Organisms: None Reported Past Surgical History: Joint Replacement Additional Past Surgical History / Comment(s): venous ablation right leg, colonoscopy. both knee replacement. Past Anesthesia/Blood Transfusion Reactions: No Reported Reaction Past Psychological History: No Psychological Hx Reported Smoking Status: Former smoker Past Alcohol Use History: Occasional Past Drug Use History: None Reported - Past Family History Mother Family Medical History: No Reported History Additional Family Medical History / Comment(s): states healthy Father Family Medical History: Cancer Additional Family Medical History / Comment(s): heart valve replacement Medications and Allergies Home Medications Medication Instructions Recorded Confirmed Type Aspirin 81 mg PO DAILY 08/25/13 05/03/20 History Cyanocobalamin [Vitamin B-12] 1,000 mcg PO DAILY 09/01/13 05/03/20 History Ferrous Sulfate [Feosol] 325 mg PO DAILY 09/01/13 05/03/20 History [place] Cuello 540 mg PO DAILY 09/01/13 05/03/20 History Red Yeast Rice 600 mg PO DAILY 09/01/13 05/03/20 History amLODIPine BESYLATE [Norvasc] 10 mg PO DAILY 09/01/13 05/03/20 History metFORMIN HCL [Glucophage] 500 mg PO DAILY 09/04/16 05/03/20 History Mag/Pot/Bromelain 2 tab PO HS 09/07/16 05/03/20 History Multivitamins, Thera [Multivitamin 1 tab PO DAILY 09/07/16 05/03/20 History (formulary)] Olmesartan Medoxomil 40 mg PO DAILY 09/07/16 05/03/20 History hydroCHLOROthiazide 25 mg PO DAILY 09/07/16 05/03/20 History Ascorbic Acid [Vitamin C] 500 mg PO DAILY@1200 tab 09/09/16 05/03/20 Rx Magnesium Hydroxide [Milk of 2,400 mg PO DAILY PRN dose 09/09/16 05/03/20 Rx Magnesia Concentrate] Empagliflozin [Jardiance] 25 mg PO DAILY 12/17/17 05/03/20 History Amoxicillin/Potassium Clav 1 tab PO Q12HR 05/03/20 05/03/20 History [Augmentin 875-125 Tablet] Dulaglutide [Trulicity] 1.5 mg SQ WEEKLY 05/03/20 05/03/20 History Sulfamethoxazole/Trimethoprim 1 each PO Q12H 05/03/20 05/03/20 History [Bactrim DS 800-160 mg] Allergies Allergy/AdvReac Type Severity Reaction Status Date / Time cephalexin monohydrate Allergy Rash/Hives Verified 04/08/18 16:26 [From Keflex] Physical Exam Vitals: Vital Signs Temp Pulse Resp BP BP Pulse Ox 05/04/20 19:21 98.2 F 74 16 132/64 97 05/04/20 14:20 98.1 F 99 18 130/71 98 05/04/20 07:59 97.6 F 85 18 136/72 98 05/04/20 02:59 98.2 F 93 110/60 96 Intake and Output 05/04/20 05/04/20 05/04/20 06:59 14:59 22:59 Other: # Voids 2 5 GENERAL DESCRIPTION: Middle-aged male lying in bed, no distress. No tachypnea or accessory muscle of respiration use. HEENT: Shows Pallor , no scleral icterus. Oral mucous membrane is dry. NECK: Trachea central, no thyromegaly. LUNGS: Unlabored breathing. Clear to auscultation anteriorly. No wheeze or c rackle. HEART: S1, S2, regular rate and rhythm. ABDOMEN: Soft, no tenderness , guarding or rigidity EXTREMITIES: left foot is currently dressed in the OR dressing no drainage on the dressing SKIN: No rash, no masses palpable. NEUROLOGICAL: The patient is awake, alert, oriented x3, mood and affect normal Results CBC & Chem 7: 05/04/20 06:11 05/04/20 06:11 Labs: Abnormal Lab Results - Last 24 Hours (Table) 05/04/20 05/04/20 05/04/20 Range/Units 06:11 06:11 07:15 RBC 3.63 L (4.30-5.90) m/uL Hgb 11.2 L (13.0-17.5) gm/dL Hct 32.8 L (39.0-53.0) % Lymphocytes # 0.9 L (1.0-4.8) k/uL BUN 28.0 H (9.0-27.0) mg/dL BUN/Creatinine Ratio 25.45 H (12.00-20.00) Ratio Glucose 118 H (70-110) mg/dL POC Glucose (mg/dL) 124 H (75-99) mg/dL Albumin/Globulin Ratio 1.34 L (1.60-3.17) g/dL 05/04/20 05/04/20 Range/Units 11:19 16:45 RBC (4.30-5.90) m/uL Hgb (13.0-17.5) gm/dL Hct (39.0-53.0) % Lymphocytes # (1.0-4.8) k/uL BUN (9.0-27.0) mg/dL BUN/Creatinine Ratio (12.00-20.00) Ratio Glucose (70-110) mg/dL POC Glucose (mg/dL) 110 H 141 H (75-99) mg/dL Albumin/Globulin Ratio (1.60-3.17) g/dL Microbiology - Last 24 Hours (Table) 05/03/20 17:00 Gram Stain - Preliminary Toe - Left Fifth Tissue Culture - Preliminary Strep agalactiae - (group b) 05/03/20 17:00 Anaerobic Culture - Preliminary Toe - Left Fifth Assessment and Plan Assessment: 1 patient with her left-foot lateral border/fifth toe diabetic foot infection that has been going on for more than 6 weeks now with evidence of bone exposed and concern for underlying osteomyelitis in this patient who is status post left fifth toe amputation with Gram stain showing gram-positive as well as gram- negative 2-Patient with cephalexin allergy to limit the number of antibiotics safe to use (1) Gangrene of toe of left foot Current Visit: No Status: Acute Code(s): I96 - GANGRENE, NOT ELSEWHERE CLASSIFIED SNOMED Code(s): [id number] Plan: 1- Unasyn 3 g every 6 hours 2-Patient will likely need PICC line outpatient IV antibiotic therapy We will follow on clinical condition and cultures to further adjust medication if needed Thank you for this consultation we will follow the patient along with you Time with Patient: Greater than 30
[2020-05-04] MEDS: MELATONIN 3 MG TABLET PO PRN (22:45)
[2020-05-05] MEDS: AMPICILLIN-SULBACTAM 3 GM in SODIUM CHLORIDE 0.9% 100 ML IVPB SCH ×4 (00:28→23:26)
[2020-05-05 07:25] LABS: Glucose,Whole Blood 98 mg/dL (75-99)
[2020-05-05] MEDS: COLLAGENASE 250 UNIT/GM OINTMENT 30 GM TUBE TOPICAL SCH (08:27)
[2020-05-05] MEDS: LOSARTAN 50 MG TAB PO SCH (08:27)
[2020-05-05] MEDS: ASPIRIN 81 MG PO SCH (08:27)
[2020-05-05] MEDS: amLODIPine 10 MG TAB PO SCH (08:28)
[2020-05-05] MEDS: CYANOCOBALAMIN 500 MCG TAB PO SCH (08:28)
[2020-05-05] MEDS: MULTIVITAMINS, THERA 1 EACH TAB PO SCH (08:28)
[2020-05-05] MEDS: ASCORBIC ACID 500 MG TAB PO SCH (08:28)
[2020-05-05] MEDS: ENOXAPARIN 40 MG/0.4 ML SYRINGE SQ SCH (08:28)
[2020-05-05] MEDS: metFORMIN 500 MG TAB PO SCH (08:28)
[2020-05-05] MEDS: LACTATED RINGERS 1,000 ML IV SCH (08:36)
[2020-05-05 11:41] LABS: Glucose,Whole Blood 111 mg/dL (75-99)
[2020-05-05 16:49] LABS: Glucose,Whole Blood 94 mg/dL (75-99)
[2020-05-05 20:44] LABS: Glucose,Whole Blood 143 mg/dL (75-99)
[2020-05-05] MEDS: MELATONIN 3 MG TABLET PO PRN (21:05)
--- NOTE | 2020-05-05 22:42 | PN ---
PROGRESS NOTE DATE OF SERVICE: 05/05/2020 REASON FOR FOLLOWUP: Left diabetic foot infection with underlying osteomyelitis. INTERVAL HISTORY: The patient is currently afebrile. The patient is breathing comfortably. The patient denies having any chest pain or shortness of breath or cough. No abdominal pain. Overall pain and discomfort to the left foot amputation site is currently controlled. PHYSICAL EXAMINATION: Blood pressure is 126/64 with a pulse of 87, temperature 97.8. He is 97% on room air. General description is a middle-aged male lying in bed in no distress. RESPIRATORY SYSTEM: Unlabored breathing. Clear to auscultation anteriorly. HEART: S1, S2. Regular rate and rhythm. ABDOMEN: Soft. No tenderness. Left foot is currently dressed up. No obvious drainage on the dressing. DIAGNOSTIC IMPRESSION AND PLAN: Patient with left fifth toe diabetic foot infection with gangrene, status post amputation. Patient's culture is showing Streptococcus agalactiae. He is covered with Unasyn. In view of the extensive infection, planning for outpatient IV antibiotic therapy. Currently on Unasyn, tolerating it so far. Continue with supportive care. MMODL / IJN: [id number] /
--- NOTE | 2020-05-05 23:32 | P.PN ---
Progress Note - Text Progress Note Date: 05/05/20 Chief Complaint: Left foot wound History of presenting complaint: This is a very pleasant 59-year-old patient of Dr. Pedro Galaviz. Chronic stable medical conditions include diabetes, hypertension, obstructive sleep apnea uses CPAP machine. Just around Thanksgiving patient noticed a small wound on the left foot distally on the lateral side. He Just using a dressing and a bandage. Started draining about 2 weeks ago. No fever no chills. No pain. 5 days ago patient went to Dr. Galaviz's office. A culture swab was taken. He was given a couple of antibiotics antibiotics. In the meantime patient and make an appointment at the wound care center Dr. Melton. Patient today came to the wound care center and was seen by Dr. Funes. Patient having significant amount of drainage and the left fifth toe was gangrenous. Dr. Melton called me. Patient was taken to the operating room. In the distal portion of the metatarsal at the fifth toe was taken off. Dressing in place. Denies any fever and chills. Patient is slight decreased sensation on the foot distally. No prior history of peripheral arterial disease. today-laying in bed. Comfortable. Good oral intake. No pain. No fever no chills. Review of systems: Was done for constitutional, cardiovascular, GI, pulmonary. relevant finding as above Active Medications Acetaminophen (Acetaminophen Tab 325 Mg Tab) 650 mg PO Q6HR PRN PRN Reason: Mild Pain or Fever > 100.5 Al Hydroxide/Mg Hydroxide (Mag Hydrox/Al Hydrox/Simeth 30 Ml Cup) 15 ml PO Q6HR PRN PRN Reason: Indigestion Alprazolam (Alprazolam 0.25 Mg Tab) 0.25 mg PO Q6HR PRN PRN Reason: Anxiety Amlodipine Besylate (Amlodipine 10 Mg Tab) 10 mg PO DAILY [facility] Last Admin: 05/05/20 08:28 Dose: 10 mg Documented by: Ascorbic Acid (Ascorbic Acid 500 Mg Tab) 500 mg PO DAILY@1200 [facility] Last Admin: 05/05/20 08:28 Dose: 500 mg Documented by: Aspirin (Aspirin 81 Mg) 81 mg PO DAILY [facility] Last Admin: 05/05/20 08:27 Dose: 81 mg Documented by: Calcium Carbonate/Glycine (Calcium Carbonate 500 Mg Chewable) 1,000 mg PO Q4HR PRN PRN Reason: Dyspepsia Collagenase (Collagenase 250 Unit/Gm Ointment 30 Gm Tube) 1 applic TOPICAL DAILY [facility] Last Admin: 05/05/20 08:27 Dose: 1 applic Documented by: Cyanocobalamin (Cyanocobalamin 500 Mcg Tab) 1,000 mcg PO DAILY [facility] Last Admin: 05/05/20 08:28 Dose: 1,000 mcg Documented by: Enoxaparin Sodium (Enoxaparin 40 Mg/0.4 Ml Syringe) 40 mg SQ DAILY [facility] Last Admin: 05/05/20 08:28 Dose: 40 mg Documented by: Lactated Ringer's (Lactated Ringers) 1,000 mls @ 20 mls/hr IV .Q24H [facility] Last Admin: 05/05/20 08:36 Dose: Not Given Documented by: Ampicillin Sodium/Sulbactam (Sodium 3 gm/ Sodium Chloride) 100 mls @ 200 mls/hr IVPB Q6HR [facility] Last Admin: 05/05/20 23:26 Dose: 200 mls/hr Documented by: Lactulose (Lactulose 20 Gm/30 Ml Cup) 20 gm PO DAILY PRN PRN Reason: Constipation Losartan Potassium (Losartan 50 Mg Tab) 150 mg PO DAILY [facility] Last Admin: 05/05/20 08:27 Dose: 150 mg Documented by: Melatonin (Melatonin 3 Mg Tablet) 3 mg PO HS PRN PRN Reason: Insomnia Last Admin: 05/05/20 21:05 Dose: 3 mg Documented by: Metformin HCl (Metformin 500 Mg Tab) 500 mg PO DAILY [facility] Last Admin: 05/05/20 08:28 Dose: 500 mg Documented by: Multivitamins (Multivitamins, Thera 1 Each Tab) 1 each PO DAILY [facility] Last Admin: 05/05/20 08:28 Dose: 1 each Documented by: Naloxone HCl (Naloxone 0.4 Mg/Ml 1 Ml Vial) 0.2 mg IV Q2M PRN PRN Reason: Opioid Reversal Ondansetron HCl (Ondansetron 4 Mg/2 Ml Vial) 4 mg IVP Q8HR PRN PRN Reason: Nausea And Vomiting Past medical history to include: Diabetes, hypertension, right foot vein surgery for venous insufficiency, obstructive sleep apnea uses CPAP Social history: . No history of smoking and alcohol. 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 Conjunctiva normal. HEENT: External appearance of nose and ears normal, oral cavity grossly normal. NECK: JVD not raised; masses not palpable. HEART: First and second heart sounds are normal; no edema. LUNGS: Respiratory rate normal; clear to auscultation. ABDOMEN: Soft, nontender, liver spleen not palpable, no masses palpable. PSYCH: Alert and oriented x3; mood and affect normal. NEUROLOGICAL: decreased sensation distally. EXTREMITIES: Left foot of the dressing INVESTIGATIONS, reviewed in the clinical context: May 04: White count 6.2 hemoglobin 11.2 platelets 292 potassium 4.5 creatinine 1.1 White count 6.5 hemoglobin 12 platelets 309 potassium 4.3 creatinine 1.24 Accu-Cheks 120-133 wound cultures-Streptococcus agalactiae Assessment: -Left foot fifth toe with gangrene surrounding cellulitis, status post amputation of the same and deep tissue cleansing with cultures growing Streptococcus agalactiae. -Diabetes mellitus type 2, on oral hypoglycemic -Morbid obesity BMI 42.9 -Obstructive sleep apnea uses CPAP machine -Essential hypertension - diabetic peripheral neuropathy Plan: on IV Unasyn. . wound care per surgery. Patient will probably need IV antibiotics for home. Discussed with patient.
[2020-05-06] MEDS: AMPICILLIN-SULBACTAM 3 GM in SODIUM CHLORIDE 0.9% 100 ML IVPB SCH ×2 (06:14→11:43)
[2020-05-06 06:38] LABS: Basophils # (A) 0.1 k/uL (0-0.2); Basophils % (A) 1 %; Eosinophils # (A) 0.2 k/uL (0-0.7); Eosinophils % (A) 3 %; HCT 34.3 % (39.0-53.0); HGB 11.6 gm/dL (13.0-17.5); Lymphocytes # (A) 1.5 k/uL (1.0-4.8); Lymphocytes % (A) 29 %; MCH 30.7 pg (25.0-35.0); MCHC 33.9 g/dL (31.0-37.0); MCV 90.5 fL (80.0-100.0); Mean Platelet Volume 7.2; Monocytes # (A) 0.4 k/uL (0-1.0); Monocytes % (A) 7 %; Neutrophils # (A) 2.9 k/uL (1.3-7.7); Neutrophils % (A) 58 %; Platelet Count 265 k/uL (150-450); RBC 3.79 m/uL (4.30-5.90); RDW 12.6 % (11.5-15.5)
[2020-05-06 07:32] LABS: Glucose,Whole Blood 102 mg/dL (75-99)
[2020-05-06] MEDS: COLLAGENASE 250 UNIT/GM OINTMENT 30 GM TUBE TOPICAL SCH (08:34)
[2020-05-06] MEDS: amLODIPine 10 MG TAB PO SCH (08:34)
[2020-05-06] MEDS: LOSARTAN 50 MG TAB PO SCH (08:34)
[2020-05-06] MEDS: metFORMIN 500 MG TAB PO SCH (08:34)
[2020-05-06] MEDS: MULTIVITAMINS, THERA 1 EACH TAB PO SCH (08:34)
[2020-05-06] MEDS: ASPIRIN 81 MG PO SCH (08:34)
[2020-05-06] MEDS: CYANOCOBALAMIN 500 MCG TAB PO SCH (08:34)
[2020-05-06 09:44] LABS: Erythrocyte Sedimentation Rate 96 mm/hr (0-15)
[2020-05-06 10:23] LABS: African American GFR (CKD) 111.7 (60.0-200.0); Anion Gap 3.2 mmol/L (4.00-12.00); BUN/Creat Ratio 21.25 Ratio (12.00-20.00); C Reactive Protein 2.2 mg/dL (0.0-0.8); Calcium 9.1 mg/dL (8.7-10.3); Carbon Dioxide 26.8 mmol/L (21.6-31.8); Non-African American GFR(CKD) 96.4 (60.0-200.0); Potassium 4.4 mmol/L (3.5-5.5)
[2020-05-06 11:40] LABS: Glucose,Whole Blood 105 mg/dL (75-99)
[2020-05-06] MEDS: ASCORBIC ACID 500 MG TAB PO SCH (11:42)
[2020-05-06] MEDS ORDERED: ERTAPENEM 1 GM in SODIUM CHLORIDE 0.9% 50 ML IVPB SCH (13:30)
[2020-05-06 14:03] VITALS: BP 137/81; PULSE 92; RESP 18; TEMP 98
[2020-05-06] MEDS: LACTATED RINGERS 1,000 ML IV SCH (14:49)
[2020-05-06] MEDS: ENOXAPARIN 40 MG/0.4 ML SYRINGE SQ SCH (15:01)
--- NOTE | 2020-05-06 15:13 | IR ---
PICC LINE PLACEMENT: HISTORY: Infection requiring long-term antibiotic therapy PROCEDURE: Ultrasound and fluoroscopic guidance of PICC line placement. COMPLICATIONS: None ANESTHESIA: 1. 1% Lidocaine locally. FINDINGS/TECHNIQUE: The procedure was explained to the patient. The risks, complications, benefits and alternatives were discussed and any questions were answered. Informed consent was obtained. The patient was placed supine on the fluoroscopic table and prepped and draped in the usual sterile [facility] ion. Utilizing a 21 gauge needle and sonographic and fluoroscopic guidance, access in the cephalic vein was achieved and there is placement of a 0.018 guidewire. The vein is patent. A 4-F sheath was placed over the guidewire. The guidewire and dilator were removed and a 4-F. PICC line was placed t hrough the sheath with the tip at the level of the SVC. The sheath was removed, the catheter was flu shed and sutured into position. The patient was stable throughout the procedure and remained stable upon discharge from the Department of Radiology. The vein puncture was patent under ultrasound. A aiken scale image was obtained to document patency of the vein punctured. All elements of the maximal barrier technique were utilized. FLUOROSCOPY TIME: 0.8 minutes and one image submitted IMPRESSION: Successful PICC line placement under ultrasound and fluoroscopic guidance.
--- NOTE | 2020-05-06 15:32 | PN ---
PROGRESS NOTE DATE OF SERVICE: 05/06/2020 REASON FOR FOLLOWUP: Left diabetic foot infection with wet gangrene and osteomyelitis. INTERVAL HISTORY: The patient is currently afebrile, has been breathing comfortably. Denies having any chest pain. No shortness of breath or cough. No nausea, no vomiting. No abdominal pain or pain to the left foot wound area. PHYSICAL EXAMINATION: Blood pressure is 137/81 with pulse of 92, temperature 98. He is 97% on room air. General description is a middle-aged male lying in bed in no distress. RESPIRATORY SYSTEM: Unlabored breathing, clear to auscultation anteriorly. HEART: S1, S2. Regular rate and rhythm. ABDOMEN: Soft, no tenderness. Left foot lateral border wound at site of fifth toe amputation with good granulation tissue, no surrounding redness or any slough tissue. LABS: Wound culture had finalized with Streptococcus agalactiae. DIAGNOSTIC IMPRESSION AND PLAN: Patient with left fifth toe diabetic foot infection with underlying wet gangrene and osteomyelitis, status post amputation. If still has significant changes will get PICC line, antibiotic switched to Invanz 1 gram daily, Rocephin could not be used as the patient has an allergy to KEFLEX. Plan for 6 weeks of antibiotic and local wound care with Aquacel Silver dressing and advised to follow up in the office in 1 week. Continue supportive care. MMODL / IJN: [id number] /
--- NOTE | 2020-05-06 16:33 | PN ---
PROGRESS NOTE Preoperative diagnosis was wet gangrene of the left foot fifth toe. Patient had amputation of the left foot fifth toe also involving the mid metatarsal, fifth toe. The patient's wound is open. We have been treating with IV antibiotic and local wound care. We will use Santyl cream daily. The patient has a PICC line and Infectious Disease is on consult for IV antibiotic. The patient will be seen in the wound clinic on Sunday. MMODL / IJN: [id number] /
[2020-05-06 16:34] LABS: Glucose,Whole Blood 108 mg/dL (75-99)
--- NOTE | 2020-05-06 23:41 | P.DS ---
Providers Date of admission: 05/03/20 14:37 Expected date of discharge: 05/06/20 Attending physician: Miguelangel Morales Consults: 05/03/20 14:45 Consult Physician Stat Consulting Provider: Emery Melton Consult Reason/Comments: wound/surgery Do you want consulting provider notified?: Already Contacted 05/03/20 14:47 Consult Physician Stat Consulting Provider: Miguelangel Morales Consult Reason/Comments: attending/medical management Do you want consulting provider notified?: Already Contacted 05/03/20 15:07 Consult Physician Stat Consulting Provider: Akshat Dias Consult Reason/Comments: Antibiotic coverage Do you want consulting provider notified?: Yes Primary care physician: Stated None Hospital Course: Chief Complaint: Left foot wound History of presenting complaint: This is a very pleasant 59-year-old patient of Dr. Pedro Galaviz. Chronic stable medical conditions include diabetes, hypertension, obstructive sleep apnea uses CPAP machine. Just around Thanksgi patient noticed a small wound on the left foot distally on the lateral side. He Just using a dressing and a bandage. Started draining about 2 weeks ago. No fever no chills. No pain. 5 days ago patient went to Dr. Galaviz's office. A culture swab was taken. He was given a couple of antibiotics antibiotics. In the meantime patient and make an appointment at the wound care center Dr. Melton. Patient today came to the wound care center and was seen by Dr. Funes. Patient having significant amount of drainage and the left fifth toe was gangrenous. Dr. Melton called me. Patient was taken to the operating room. In the distal portion of the metatarsal at the fifth toe was taken off. Dressing in place. Denies any fever and chills. Patient is slight decreased sensation on the foot distally. No prior history of peripheral arterial disease. Wound culture did grow Streptococcus agalactiae group B and some other organisms. Not identified. today-laying in bed. Comfortable. Good oral intake. No pain. No fever no chills. Discussed with Dr. Tracey from ID. Discussed with Dr. Melton from vascular. Patient stable to discharge. Patient did get a midline today. Patient will get IV Invanz for 42 doses. Consultation: Dr. Dias from ID Dr. Melton from vascular surgery Past medical history to include: Diabetes, hypertension, right foot vein surgery for venous insufficiency, obstructive sleep apnea uses CPAP Social history: . No history of smoking and alcohol. 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 Conjunctiva normal. HEENT: External appearance of nose and ears normal, oral cavity grossly normal. NECK: JVD not raised; masses not palpable. HEART: First and second heart sounds are normal; no edema. LUNGS: Respiratory rate normal; clear to auscultation. ABDOMEN: Soft, nontender, liver spleen not palpable, no masses palpable. PSYCH: Alert and oriented x3; mood and affect normal. NEUROLOGICAL: decreased sensation distally. EXTREMITIES: Left foot of the dressing INVESTIGATIONS, reviewed in the clinical context: May 06: White count 5 hemoglobin 11.6 potassium 4.4 creatinine 0.8 CRP 2.2 pro-calcitonin 0.05 May 04: White count 6.2 hemoglobin 11.2 platelets 292 potassium 4.5 crea tinine 1.1 White count 6.5 hemoglobin 12 platelets 309 potassium 4.3 creatinine 1.24 Accu-Cheks 120-133 wound cultures-Streptococcus agalactiae Assessment: -Left foot fifth toe with gangrene surrounding cellulitis, status post amputation of the same and deep tissue cleansing with cultures growing Streptococcus agalactiae. -Diabetes mellitus type 2, on oral hypoglycemic -Morbid obesity BMI 42.9 -Obstructive sleep apnea uses CPAP machine -Essential hypertension - diabetic peripheral neuropathy Plan: on IV Unasyn. . wound care per surgery. Patient will probably need IV antibiotics for home. Discussed with patient. Patient Condition at Discharge: Stable Plan - Discharge Summary Discharge Rx Participant: Yes New Discharge Prescriptions: New Ertapenem [INVanz] 1 gm IVPB Q24H #42 bag Chlorthalidone 25 mg PO DAILY #30 tab Collagenase [Santyl] 1 applic TOPICAL DAILY applic Acetaminophen Tab [Tylenol] 650 mg PO Q6HR PRN tab PRN Reason: Mild Pain Or Fever > 100.5 Continue Aspirin 81 mg PO DAILY Cyanocobalamin [Vitamin B-12] 1,000 mcg PO DAILY Ferrous Sulfate [Feosol] 325 mg PO DAILY amLODIPine BESYLATE [Norvasc] 10 mg PO DAILY metFORMIN HCL [Glucophage] 500 mg PO DAILY Olmesartan Medoxomil 40 mg PO DAILY Multivitamins, Thera [Multivitamin (formulary)] 1 tab PO DAILY Ascorbic Acid [Vitamin C] 500 mg PO DAILY@1200 tab Magnesium Hydroxide [Milk of Magnesia Concentrate] 2,400 mg PO DAILY PRN dose PRN Reason: Constipation Empagliflozin [Jardiance] 25 mg PO DAILY Dulaglutide [Trulicity] 1.5 mg SQ WEEKLY Discontinued hydroCHLOROthiazide 25 mg PO DAILY Amoxicillin/Potassium Clav [Augmentin 875-125 Tablet] 1 tab PO Q12HR Sulfamethoxazole/Trimethoprim [Bactrim DS 800-160 mg] 1 each PO Q12H No Action Red Yeast Rice 600 mg PO DAILY [place] Cuello 540 mg PO DAILY Mag/Pot/Bromelain 2 tab PO HS Discharge Medication List Aspirin 81 mg PO DAILY 08/25/13 [History] Cyanocobalamin [Vitamin B-12] 1,000 mcg PO DAILY 09/01/13 [History] Ferrous Sulfate [Feosol] 325 mg PO DAILY 09/01/13 [History] [place] Cuello 540 mg PO DAILY 09/01/13 [History] Red Yeast Rice 600 mg PO DAILY 09/01/13 [History] amLODIPine BESYLATE [Norvasc] 10 mg PO DAILY 09/01/13 [History] metFORMIN HCL [Glucophage] 500 mg PO DAILY 09/04/16 [History] Mag/Pot/Bromelain 2 tab PO HS 09/07/16 [History] Multivitamins, Thera [Multivitamin (formulary)] 1 tab PO DAILY 09/07/16 [History] Olmesartan Medoxomil 40 mg PO DAILY 09/07/16 [History] Ascorbic Acid [Vitamin C] 500 mg PO DAILY@1200 tab 09/09/16 [Rx] Magnesium Hydroxide [Milk of Magnesia Concentrate] 2,400 mg PO DAILY PRN dose 09/09/16 [Rx] Empagliflozin [Jardiance] 25 mg PO DAILY 12/17/17 [History] Dulaglutide [Trulicity] 1.5 mg SQ WEEKLY 05/03/20 [History] Acetaminophen Tab [Tylenol] 650 mg PO Q6HR PRN tab 05/06/20 [Rx] Chlorthalidone 25 mg PO DAILY #30 tab 05/06/20 [Rx] Collagenase [Santyl] 1 applic TOPICAL DAILY applic 05/06/20 [Rx] Ertapenem [INVanz] 1 gm IVPB Q24H #42 bag 05/06/20 [Rx] Follow up Appointment(s)/Referral(s): Pedro Galaviz MD [STAFF PHYSICIAN] - 1 Week [facility], [NON-STAFF] - [facility],Infusion [NON-STAFF] - Emery Melton MD [STAFF PHYSICIAN] - 3 Days (SUNDAY) Akshat Dias MD [STAFF PHYSICIAN] - 1 Week Activity/Diet/Wound Care/Special Instructions: *Patient will need a written prescription dressing supplies at discharge* Fax Rx to [facility] at [phone] and give rx to patient. Patient is going home on Invanz 1 gram IV daily per Dr. Dias. [facility] will deliver the supplies on 05/07/2020. [facility] will visit afterwards to initiate IV antibiotic teaching. Both agencies will call patient prior to visit. Discharge Disposition: HOME SELF-CARE
== END 2020-05-06 19:16 | disposition home or self-care (01) | DRG 617 ==
LOC: 2ORMAIN 14:37 → 4SSUR 16:45
PROVIDERS: ADMIT Hospitalist; ATTEND Hospitalist
PROC: 0Y6Y0Z0 Detachment at Left 5th Toe, Complete, Open Approach (ICD-10-PCS; principal; 2020-05-03 12:20)
PROC: 02HV33Z Insertion of Infusion Device into Superior Vena Cava, Percutaneous Approach (ICD-10-PCS; 2020-05-06)
DX: E11.69 Type 2 diabetes mellitus with other specified complication (principal); M86.172 Other acute osteomyelitis, left ankle and foot; Z68.41 Body mass index [BMI] 40.0-44.9, adult; E11.52 Type 2 diabetes mellitus with diabetic peripheral angiopathy with gangrene; L03.116 Cellulitis of left lower limb; I96 Gangrene, not elsewhere classified; B95.4 Other streptococcus as the cause of diseases classified elsewhere; E66.01 Morbid (severe) obesity due to excess calories; G47.33 Obstructive sleep apnea (adult) (pediatric); I10 Essential (primary) hypertension; E11.42 Type 2 diabetes mellitus with diabetic polyneuropathy; Z96.653 Presence of artificial knee joint, bilateral; E11.628 Type 2 diabetes mellitus with other skin complications; Z79.82 Long term (current) use of aspirin; Z79.84 Long term (current) use of oral hypoglycemic drugs; Z79.2 Long term (current) use of antibiotics; Z79.899 Other long term (current) drug therapy; Z87.891 Personal history of nicotine dependence; Z88.1 Allergy status to other antibiotic agents; Z80.9 Family history of malignant neoplasm, unspecified; Z82.49 Family history of ischemic heart disease and other diseases of the circulatory system
CPT/HCPCS: 36573; 80048; 80053; 84145; 85025; 85652; 86140; 87070; 87075; 87077; 87186; 87205

== ENCOUNTER → 2020-05-28 | Outpatient (CLI) | payer BC | END | disposition home or self-care (01) | LOC: RADUSWWP 07:46 | PROVIDERS: ATTEND Family Medicine | DX: I73.9 Peripheral vascular disease, unspecified (principal) | CPT/HCPCS: 93922 ==

== ENCOUNTER → 2020-07-26 | Outpatient (CLI) | payer BC ==
[2020-07-26 19:29] LABS: Basophils # (A) 0.04 X 10*3/uL (0.00-0.10); Basophils % (A) 1.1 %; Eosinophils # (A) 0.19 X 10*3/uL (0.04-0.35); Eosinophils % (A) 5.2 %; HCT 33.3 % (39.6-50.0); Lymphocytes % (A) 30.4 %; MCH 26.4 pg (27.0-32.0); MCV 87.9 fL (80.0-97.0); Mean Platelet Volume 10.9 fL (9.5-12.2); Monocytes # (A) 0.46 X 10*3/uL (0.20-1.00); Monocytes % (A) 12.7 %; Neutrophils # (A) 1.82 X 10*3/uL (1.80-7.70); Neutrophils % (A) 50.3 %; Platelet Count 180 X 10*3/uL (140-440); RBC 3.79 X 10*6/uL (4.40-5.60); RDW 16.5 % (11.5-14.5); WBC 3.62 X 10*3/uL (4.50-10.00)
[2020-07-26 22:53] LABS: African American GFR (CKD) 106.5 (60.0-200.0); Albumin 4.6 g/dL (3.80-4.90); Albumin/Globulin Ratio 1.77 (1.60-3.17); Anion Gap 7.7 mmol/L (4.00-12.00); BUN/Creat Ratio 22.22 Ratio (12.00-20.00); Calcium 9.8 mg/dL (8.7-10.3); Carbon Dioxide 27.3 mmol/L (21.6-31.8); Chol/HDL Ratio 4.33; Globulin 2.6 g/dL (1.6-3.3); LDL Cholesterol,Calculated 103.8 mg/dL (0.0-131.0); Non-African American GFR(CKD) 91.9 (60.0-200.0); Total Bilirubin 0.4 mg/dL (0.2-1.2); Total Protein 7.2 g/dL (6.2-8.2); VLDL Calculation 16.2 mg/dL (5.00-40.00)
[2020-07-26 23:13] LABS: Prostate Specific Antigen 0.4 ng/mL (0.0-4.5)
== END | disposition home or self-care (01) ==
LOC: LABWHC1 09:58
PROVIDERS: ATTEND Family Medicine
DX: Z00.00 Encounter for general adult medical examination without abnormal findings (principal); Z12.5 Encounter for screening for malignant neoplasm of prostate
CPT/HCPCS: 36415; 80053; 80061; 84153; 85025